=== PATIENT | male | born 1970 | race Caucasian/White ===

== ENCOUNTER 2019-05-07 15:36 | Inpatient (IN) ==
[2019-05-07] MEDS ORDERED: VENTOLIN HFA INH PRN (18:53)
[2019-05-07] MEDS ORDERED: ATARAX PO PRN (18:53)
[2019-05-07] MEDS ORDERED: SODIUM CHLORIDE 0.9% INJ SCH (19:00)
[2019-05-07] MEDS ORDERED: NEXIUM IV SCH (19:00)
[2019-05-07 19:20] LABS: ALLEN TEST YES; BE 12.6 mmoll (-3.0-3.0); BLOOD TYPE ARTERIAL; HCO3-(ACT) 34.2 mmoll (20.0-26.0); METHB 0.9 % (0.0-1.5); O2(CT) 19.6 mL/dL (15.0-23.0); SAMPLE BLOOD; THB 17.3 g/dL (11.5-17.4); pH(98.6) 7.31 (7.35-7.45)
[2019-05-07 19:23] LABS: MODALITY ROOM AIR; O2HB 80.8 % (95.0-99.0); PCO2(98.6) 88 mmHg (35-45); PO2(98.6) 43 mmHg (60-100)
[2019-05-07] MEDS: LOVENOX SUBQ SCH (20:05)
[2019-05-07] MEDS: NEURONTIN PO SCH (20:05)
[2019-05-07] MEDS: PROTONIX IV SCH (20:14)
[2019-05-07] MEDS: SODIUM CHLORIDE 0.9% INJ SCH (20:14)
[2019-05-07] MEDS: HUMULIN R SUBQ SCH (21:50)
[2019-05-07] MEDS ORDERED: PREVNAR 13 IM ONE (21:51)
[2019-05-08] MEDS: ULTRAM PO PRN ×2 (04:35→16:38)
[2019-05-08] MEDS: NEURONTIN PO SCH ×3 (05:14→21:15)
--- NOTE | 2019-05-08 06:29 | HISTORY AND PHYSICAL ---
CHIEF COMPLAINT: Altered mental status, hypoxic, and cyanotic. HISTORY OF PRESENT ILLNESS: He is a 48-year-old with Pickwickian syndrome, sleep hypopnea on oxygen, elevation of right hemidiaphragm with obesity, hypoventilation syndrome came to my office with fatigue and weakness. He had an annual exam done 2 weeks ago. He also has a low testosterone. He is not taking any diazepam or pain medications. He was on oxygen. He was obtunded in the chair, not easily arousable, pulse oximetry 58 percent, and he is very cyanotic. The patient would wake up with multiple verbal stimulus, and then asked him to take deep breaths and increased the oxygen. X-ray showed elevation of right hemidiaphragm. He is high risk for having CO2 narcosis. He also needs workup on chronic hypogonadism. He is not taking testosterone. He was seen by Dr. Sánchez.. He might be beneficial for using the trilogy on BiPAP machine. He was admitted directly with the help of the family for evaluation of acute respiratory failure due to hypoxic failure with CO2 narcosis. He denies of any chest pain, dyspnea on exertion, or swelling of feet. PAST MEDICAL HISTORY: 1. Anxiety. 2. Arnold-Chiari syndrome without spina bifida. 3. Chronic neck pain. 4. Metabolic syndrome. 5. Sleep apnea. 6. Hypertension. 7. Elevated right hemidiaphragm. 8. Hypogonadism. 9. Type 2 diabetes, A1c 7.1. 10. Hyperlipidemia off Lipitor. PAST SURGICAL HISTORY: Cervical vertebral fusion. MEDICATIONS: 1. Norvasc 10 mg daily. 2. Metformin 500 daily. 3. Gabapentin 600 3 times daily. 4. Stop taking Lipitor. 5. Hydroxyzine 50 t.i.d. 6. Albuterol as needed. 7. Valium 5 mg as needed. ALLERGIES: Ventralex. SOCIAL HISTORY: He is single. Working for IT support. Lives in [place]. Poor exercise. No smoking. No alcohol. No drug abuse. FAMILY HISTORY: Father of lung cancer at 63. Mom is 73 with osteoporosis. HEALTH MAINTENANCE: Influenza vaccine declined. Last physical exam 04/26/2019. REVIEW OF SYSTEMS: HEENT: No headache. No vision problem. Chronic neck pain. No sore throat. Neck: No goiter. No lymphadenopathy. No bruit. Cardiopulmonary: No chest pain, shortness of breath on exertion, swelling of legs and poor air entry. GI: No nausea, vomiting, abdominal pain. : No history of hesitancy, frequency, dysuria, and swelling of legs. Neurologic: No focal symptoms or weakness. PHYSICAL EXAMINATION: VITAL SIGNS: Temperature 98 degrees, pulse 91, blood pressure 144/82, and 92% now on nasal cannula. Six feet tall, 313 pounds. HEENT: Atraumatic, normocephalic. Pupils equal, and reactive to light. TMs are normal. Nose and throat within normal limits. NECK: Supple. No lymphadenopathy. No goiter. CHEST: Poor air entry. HEART: Sounds are very regular. Belly is soft, obese, nontender. RECTAL: Normal prostate. Heme-negative stool. EXTREMITIES: There is 1+ pedal edema. NEUROLOGIC: No obvious neurological deficits. INVESTIGATIONS: A pH is 7.31, pCO2 88, PO2 43. Carboxyhemoglobin 80 on room air. Glucose 180. Cardiac enzymes proBNP was normal. Chest x-ray with elevated right hemidiaphragm. ASSESSMENT AND PLAN: 1. A 48-year-old white gentleman admitted to the hospital with acute respiratory failure due to hypoxic failure and hypercarbia due to obesity, hypoventilation syndrome, sleep apnea, and abnormal chest x-ray with right hemidiaphragm. Plan is to quit smoking, oxygen 2 L. Trilogy or BiPAP machine will be helpful, and overnight pulse oximetry. 2. DVT/GI prophylaxis with Lovenox and Nexium respectively. 3. Initiate vaccination protocol. He declined the flu vaccine. Consider pneumococcal vaccine 13 and 23 after 1 year. 4. Type 2 diabetes. A1c 7.7 on metformin. 5. Hyperlipidemia, off Lipitor. LDL is 100. Consider low dose of Lipitor. 6. Chronic anxiety. Discontinue Valium due to worsening of asphyxia and hydroxyzine as needed. 7. We will follow up on the reconcile home medications. 8. Hypogonadism, low testosterone level. We will check the free testosterone, prolactin, FSH and transferrin saturation. Will follow up. cc: MD ALLI Arce
[2019-05-08] MEDS: HUMULIN R SUBQ SCH ×4 (06:58→21:00)
[2019-05-08] MEDS: NORVASC PO SCH (08:51)
[2019-05-08] MEDS: GLUCOPHAGE XR PO SCH (08:51)
[2019-05-08] MEDS: LIPITOR PO SCH (08:51)
--- NOTE | 2019-05-08 10:12 | Diag Imaging Result Doc PS360 ---
EXAM: XRAY HIP UNILATERAL LT 05/08/2019 HISTORY: pain TECHNIQUE: Left hip two views COMMENT: There is no evidence of fracture or dislocation. The joint spaces well-maintained. IMPRESSION: No evidence of acute bony disease. Electronically signed by Terry Turpin 05/08/2019 10:10 AM
[2019-05-08] MEDS: LOVENOX SUBQ SCH (19:46)
--- NOTE | 2019-05-08 20:14 | PROGRESS NOTE ---
DATE: 05/08/2019 SUBJECTIVE: The patient is waiting for his overnight pulse oximetry. He is on oxygen. His breathing is very labored. He is very obese. Unable to do PFTs. He also had an abnormal chest x- ray with elevated right hemidiaphragm. He has obesity hypoventilation syndrome. He has retaining hypercarbia at 88. His O2 was 43. He does not have any symptoms or signs of infection. He has complains of left hip pain. He has some stasis changes noted in both legs and is not able to ambulate. He also complains of low T. OBJECTIVE: Vital Signs: Temperature is 97, pulse is 98, blood pressure is 141/72, 93% on 4 L nasal cannula. HEENT: Plethoric face. Neck: Supple. Lungs: Poor air entry, distant heart sounds. Abdomen: Belly is soft, nontender. Extremities: Range of motion is normal in the left hip. Chronic stasis dermatitis noted. ASSESSMENT AND PLAN: 1. The patient is a 48-year-old white male who came in with [id number] respiratory failure with hypercarbia and hypoxemia due to a combination of obesity hypoventilation, possible sleep apnea, possible restrictive lung disease and also elevation of right hemidiaphragm. This is multifactorial. On top of this, he is also taking valium for chronic anxiety medicine. He will be very high risk for having CO2 narcosis and asphyxia. He was not able to tolerate a BiPAP machine. He needs noninvasive ventilatory measures to prevent acute respiratory failure. 2. Follow up on overnight pulse oximetry. 3. Hypogonadism, follow up on free testosterone levels and workup which includes FSH, transferrin saturation, prolactin levels. 4. Left hip pain. Follow up on x-ray of the left hip. 5. Chronic venous stasis dermatitis, stable. 6. Type 2 diabetes, stable. His A1c is 7.7 on metformin. Discussed with at bedside, and will arrange a It Systems Engineer consult for noninvasive ventilatory support for acute recurrent chronic respiratory failure. 7. Discussed with family at bedside. cc: Miguel Tavarez MD MTDD
[2019-05-08] MEDS: PROTONIX IV SCH (21:16)
[2019-05-08] MEDS: SODIUM CHLORIDE 0.9% INJ SCH (21:16)
[2019-05-09] MEDS: ULTRAM PO PRN ×3 (05:01→21:45)
[2019-05-09] MEDS: NEURONTIN PO SCH ×4 (05:01→23:06)
[2019-05-09] MEDS: HUMULIN R SUBQ SCH ×4 (07:03→23:05)
[2019-05-09] MEDS: NORVASC PO SCH (09:12)
[2019-05-09] MEDS: GLUCOPHAGE XR PO SCH (09:12)
[2019-05-09] MEDS: LIPITOR PO SCH (09:12)
--- NOTE | 2019-05-09 10:51 | PROGRESS NOTE ---
DATE: 05/09/2019 SUBJECTIVE: Patient denies having any acute complaints this morning. OBJECTIVE: Vital Signs: Temperature 99.1 degrees, pulse 107 per minute, respiratory rate 20 per minute, blood pressure 147/67, pulse oximetry 90% on 4 L of oxygen via nasal cannula. General: The patient is awake and alert. He does not appear to be in any acute distress. He is morbidly obese. Cardiovascular System: First and second heart sounds are audible without any murmurs or gallops. Respiratory System: Bilateral lung air entry is moderately decreased with no rales or rhonchi present on auscultation. Gastrointestinal System: The patient is morbidly obese. Abdomen is soft and nontender on palpation. Normal bowel sounds are present. DIAGNOSTIC DATA: No new labs have been done this morning. IMPRESSION: 1. Acute on chronic respiratory failure secondary to pickwickian syndrome and chronic obstructive pulmonary disease. He has been chronically retaining CO2 and has been diagnosed as having obstructive sleep apnea, for which he is currently being evaluated by insurance so that he can get approved for CPAP at home. 2. Type 2 diabetes mellitus and dyslipidemia, both of which have been under moderate control. PLAN: The patient will continue to be on supplemental oxygen, and we will continue with current medications including regular Humulin insulin subcutaneously as per sliding scale, metformin, atorvastatin, amlodipine and pantoprazole. He will continue with enoxaparin for VTE prophylaxis. I am going to put him on albuterol and ipratropium bromide nebulization treatments, and also get a chest x-ray, along with routine lab work done. On a chronic basis at home, he will need treatment for his obstructive sleep apnea, so that he does not have to have chronic CO2 retention, ending up having frequent hospital admissions. cc: MD Miguel Crawley MD
--- NOTE | 2019-05-09 11:40 | Diag Imaging Result Doc PS360 ---
EXAM: CHEST-PORTABLE HISTORY: Dyspnea TECHNIQUE: Single view COMPARISON: 04/27/2017 FINDINGS: Poor inspiratory effort. Heart is mildly prominent. There is basilar atelectasis. Small right pleural effusion versus pleural thickening. There has been surgery to the lower neck. IMPRESSION: Poor inspiratory effort with basilar atelectasis versus small infiltrates Electronically signed by Robert Trejo 05/09/2019 11:37 AM
[2019-05-09] MEDS: DUONEB (A & A) INH SCH ×2 (16:07→21:07)
[2019-05-09] MEDS: PROTONIX IV SCH (19:53)
[2019-05-09] MEDS: LOVENOX SUBQ SCH ×2 (19:53→23:06)
[2019-05-09] MEDS: SODIUM CHLORIDE 0.9% INJ SCH (23:06)
[2019-05-10] MEDS: DUONEB (A & A) INH SCH ×4 (03:32→20:13)
[2019-05-10] MEDS: HUMULIN R SUBQ SCH ×4 (06:03→20:33)
[2019-05-10] MEDS: NEURONTIN PO SCH ×3 (06:03→20:33)
[2019-05-10] MEDS: ULTRAM PO PRN ×2 (06:05→15:54)
[2019-05-10 07:53] LABS: BASO# 0.02 X1000 (0.0-0.2); BASO% 0.2 % (0.0-0.8); EOS# 0.27 X1000 (0.0-0.7); EOS% 3.2 % (0.0-10.0); HEMATOCRIT 53.9 % (42.0-52.0); HEMOGLOBIN 15.5 g/dL (14.0-18.0); IMM GRAN# 0.02 X1000 (0.0-0.04); IMM GRAN% 0.2 % (0.0-0.5); LYMPH# 1.49 X1000 (1.2-3.4); LYMPH% 17.9 % (20.5-51.1); MCH 29.4 PG (27-31); MCHC 28.8 g/dL (33-37); MCV 102.1 FL (81-99); MONO# 0.69 X1000 (0.11-0.59); MONO% 8.3 % (1.7-9.3); MPV 10.4 FL (7.4-10.4); NEUT# 5.83 X1000 (1.4-6.5); NEUT% 70.2 % (42.2-75.2); PLT 178 X1000 (130-400); RBC 5.28 XMIL (4.7-6.1); RDW 13.9 % (11.5-14.5); WBC 8.32 X1000 (4.8-10.8)
[2019-05-10 08:27] LABS: ESTIMATED GFR > 60
[2019-05-10 08:39] LABS: AGAP 8; ALB/GLOB RATIO 1.6; ALBUMIN 4.2 g/dL (3.5-5.0); ALKALINE PHOSPHATASE 53 U/L (32-122); BUN 9 mg/dL (8-22); CALCIUM 9.2 mg/dL (8.8-10.2); CHLORIDE 94 mmol/L (98-107); COSMO 288; CREATININE 0.5 mg/dL (0.7-1.2); GLUCOSE 145 mg/dL (70-104); GOT 26 U/L (10-34); GPT 25 U/L (10-44); POTASSIUM 4.6 mmol/L (3.5-5.1); SODIUM 144 mmol/L (136-145); TCO2 42 mmol/L (25-35); TOTAL BILIRUBIN 0.61 mg/dL (0.20-1.00); TOTAL PROTEIN 6.9 g/dL (6.3-8.3)
[2019-05-10] MEDS: NORVASC PO SCH (09:06)
[2019-05-10] MEDS: GLUCOPHAGE XR PO SCH (09:06)
[2019-05-10] MEDS: LIPITOR PO SCH (09:06)
--- NOTE | 2019-05-10 20:21 | PROGRESS NOTE ---
DATE: 05/10/2019 SUBJECTIVE: The patient is a little better, complains of left hip pain and back pain. Waiting for Trilogy machine. PHYSICAL EXAMINATION: Temperature is 98.9 degrees, pulse 91, blood pressure is stable.HEENT: Within normal limits. Neck: Supple. Chest: Poor air entry. Heart: Sounds are regular. Abdomen: Belly is soft, nontender. No obvious deficits. ASSESSMENT AND PLAN: Acute respiratory failure. Waiting to be approved Trilogy. Unfortunately, has highly deductible. Explained the other options. We can try BiPAP machine with sleep study as an outpatient and we will workup on this back pain and continue symptomatic treatment. As far as hypogonadism, levels of free testosterone is pending. Workup so far is negative. Continue present treatment. We will discharge in the morning. We will work for sleep studies officially. Overnight pulse oximetry studies is pending. LEVEL OF DOCUMENTATION: 25 minutes. cc: Miguel Tavarez MD
[2019-05-10] MEDS: LOVENOX SUBQ SCH (20:33)
[2019-05-10] MEDS: PROTONIX IV SCH (20:33)
[2019-05-11] MEDS: ULTRAM PO PRN (03:00)
[2019-05-11] MEDS: DUONEB (A & A) INH SCH ×2 (04:05→08:02)
[2019-05-11] MEDS: NEURONTIN PO SCH ×2 (06:20→12:31)
[2019-05-11] MEDS: HUMULIN R SUBQ SCH ×2 (06:52→11:40)
[2019-05-11] MEDS: GLUCOPHAGE XR PO SCH (08:55)
[2019-05-11] MEDS: NORVASC PO SCH (08:55)
[2019-05-11] MEDS: LIPITOR PO SCH (08:55)
[2019-05-11 12:27] VITALS: BP 141/85
[2019-05-11] MEDS ORDERED: PROTONIX PO SCH (20:00)
--- NOTE | 2019-05-12 21:05 | DISCHARGE SUMMARY ---
ADMISSION DATE: 05/07/2019 DISCHARGE DATE: 05/11/2019 DISCHARGING DIAGNOSES: 1. Acute respiratory failure with chronic respiratory failure, multifactorial. 2. Obesity hypoventilation syndrome. 3. Restrictive lung disease. 4. Elevation of right hemidiaphragm. SECONDARY DIAGNOSES: 1. Arnold-Chiari information without spina bifida. 2. Chronic anxiety. 3. Chronic neck pain. 4. Metabolic syndrome. 5. Sleep apnea. 6. Hypertension. 7. History of hypogonadism. Followup free testosterone levels were normal. 8. Type 2 diabetes. 9. Hyperlipidemia. BRIEF HISTORY: Please see the H and P that was done on 05/07/2019. In brief, he is a 48-year-old white male with the above problems. He was brought in to my office with altered mental status with cyanosis on 2 L of nasal cannula, not responding properly as per the nurses, and his pulse ox was 58%. He was admitted directly for acute respiratory failure with chronic respiratory insufficiency. HOSPITAL COURSE: 1. His ABG showed profound hypercarbia and hypoxemia. He needs to be encouraged to lose weight and continue incentive spirometry. He was seen by tool dispatcher, . He meets qualification for a Trilogy noninvasive ventilator machine. Unfortunately, the patient could not afford the deductibles. The other option is using a BiPAP machine. I will arrange outpatient sleep studies. 2. He has chronic stasis changes in both legs which are stable. 3. Complains of left hip pain. X-rays were negative. 4. History of hypogonadism. Followup of free testosterone levels were normal. Further workup, prolactin, FSH, and transferrin saturation were normal. At this time, I am reluctant to give any testosterone shots. He needs to monitor his weight, diabetes hypertension. 5. I spoke to the caregiver at bedside. He does not need any chronic pain medicines or anxiety medicine that will cause more CO2 narcosis and asphyxia. I would categorically discourage using any chronic pain medicines along with benzodiazepines. LABORATORY DATA: As follows CBC: White cell count 8.3, hematocrit 53, platelets 178. ABG on room air: pH is 7.31, pCO2 88, PO2 43. Oxyhemoglobin 80% on room air. Sodium 144, potassium 4.6, carbon dioxide 42, BUN 9, creatinine 0.5, glucose 145. LFTs were normal. Cardiac enzymes are normal. ProBNP was normal. I repeated the free testosterone level, which was normal at 6.8. DISCHARGE INSTRUCTIONS: 1. Pneumococcal vaccine 13 was given 05/11/2019. 2. Oxygen 2 L. 3. Encouraged weight loss. 4. Neurontin 600 t.i.d. Discontinue Valium. Amlodipine 10 daily, hydroxyzine as needed for nausea, metformin 500 p.o. daily, albuterol ProAir as needed, Excedrin 15 tablets as needed. 5. Outpatient sleep studies with Dr. Cordero. 6. BiPAP machine. FOLLOWUP: In my office in 2 weeks. cc: Miguel Tavarez MD MTDD
== END 2019-05-11 12:54 | disposition home or self-care (01) | DRG 189 ==
LOC: DIRADM 15:36 → 4N 16:27 → 3N 05-08 22:31
PROVIDERS: ADMIT Internal Medicine; ATTEND Internal Medicine

== ENCOUNTER 2019-08-21 22:07 | Inpatient (IN) ==
[2019-08-21 23:37] LABS: BASO# 0.05 X1000 (0.0-0.2); BASO% 0.5 % (0.0-0.8); HEMATOCRIT 52.9 % (42.0-52.0); HEMOGLOBIN 15.5 g/dL (14.0-18.0); IMM GRAN# 0.03 X1000 (0.0-0.04); IMM GRAN% 0.3 % (0.0-0.5); LYMPH# 1.28 X1000 (1.2-3.4); LYMPH% 12.9 % (20.5-51.1); MCH 29.8 PG (27-31); MCHC 29.3 g/dL (33-37); MCV 101.7 FL (81-99); MONO# 0.85 X1000 (0.11-0.59); MONO% 8.5 % (1.7-9.3); MPV 10.8 FL (7.4-10.4); NEUT# 7.64 X1000 (1.4-6.5); NEUT% 76.8 % (42.2-75.2); PLT 180 X1000 (130-400); RDW 12.6 % (11.5-14.5); WBC 9.95 X1000 (4.8-10.8)
[2019-08-21 23:59] LABS: ESTIMATED GFR > 60
[2019-08-22] LABS: AGAP 7; ALB/GLOB RATIO 1.1; ALBUMIN 4.2 g/dL (3.5-5.0); ALKALINE PHOSPHATASE 65 U/L (32-122); BUN 13 mg/dL (8-22); CALCIUM 9.7 mg/dL (8.8-10.2); CHLORIDE 93 mmol/L (98-107); COSMO 287; CREATININE 0.6 mg/dL (0.7-1.2); GLUCOSE 141 mg/dL (70-104); GOT 16 U/L (10-34); GPT 19 U/L (10-44); POTASSIUM 4.5 mmol/L (3.5-5.1); SODIUM 143 mmol/L (136-145); TCO2 43 mmol/L (25-35); TOTAL BILIRUBIN 0.42 mg/dL (0.20-1.00); TOTAL PROTEIN 7.9 g/dL (6.3-8.3)
--- NOTE | 2019-08-22 00:21 | PROVIDER DOCUMENTATION ---
This chart was entered by Halle Fritz Scribe, acting as scribe for Chung Souza MD. HPI-Musculoskeletal Pain/Inj - GENERAL Chief Complaint: Fall Stated Complaint: fall Time Seen by Provider: 08/21/19 22:24 Source: patient, EMS - HX OF PRESENT ILLNESS-MUSKULOSKELTAL Nature of Presenting Problem: 48 yowm presents to the ed via ems post falling while at home. pt sts he has chiari malformation which he sts it causes generalized weakness. pt reports he was going to the bathroom when he had lower back weakness that caused him to fall. pt c/o left upper back medial to scapula Quality of Pain: reports: aching Severity in ED: moderate Onset/Duration: just prior to arrival Timing: still present, intermittent Modifying Factors: improves with: immobilization. worse with: movement, palpa tion Any recent injury?: Yes (fall ) Locality of Occurance: Home Similar Symptoms Previously?: Yes (chiari malformation that causes weakness per pt ) Recently seen or treated by another doctor?: No - FALL INJURY Location of Pain/Injury: reports: back Pain Radiation: reports: no radiation Reason for Fall: reports: other (became weak) Symptoms prior to fall:: reports: other (weakness in his back) Loss of Consciousness: no loss of consciousness Injury Associated Symptoms: reports: back/neck pain, weakness (generalized). denies: chest pain, nausea, snap/crack/pop sensation, pain with inspiration, vomiting Review of Systems - Adult - REVIEW OF SYSTEMS - ADULT Constitutional: denies: chills, fever Eyes: reports: no symptoms reported Ears, Nose, Mouth & Throat: reports: no symptoms reported Cardiovascular: denies: chest pain, palpitations Respiratory: denies: cough, shortness of breath, wheezing Gastrointestinal: denies: diarrhea, nausea, vomiting Genitourinary: reports: no symptoms reported Musculoskeletal: reports: see HPI, back pain, muscle weakness. denies: neck pain Integumentary: reports: no symptoms reported Neurological: denies: dizziness/vertigo, headache/migraines Psychiatric: reports: no symptoms reported Endocrine: reports: no symptoms reported Hematologic/Lymphatic: reports: no symptoms reported Allergic/Immunologic: reports: no symptoms reported All Other Systems: Reviewed and Negative Past History - Adult - PAST MEDICAL HISTORY-ADULT Review of Records: reports: Old Records Reviewed, Nursing Assessment Review, Medications Reviewed, Social history reviewed & non-contributory. Major Childhood Illnesses: reports: denies history Cardiovascular: reports: denies history Respiratory: reports: denies history Gastrointestinal: reports: denies history Genitourinary: reports: denies history Musculoskeletal: reports: chronic pain Neurological: reports: other (chiari malformation) Psychiatric: reports: denies history Endocrine/Immune: reports: denies history Other Conditions: reports: denies history Additional History: generalized weakness - PRIOR SURGERIES/PROCEDURES Surgical/Procedure History: reports: back/neck - IMMUNIZATION STATUS Childhood Immunizations: See Nurse Assessment Flu Vaccine: See Nurse Assessment - FAMILY HISTORY Family History: reviewed, not pertinent - SOCIAL HISTORY Smoking: quit greater than 1 year Substance Use: denies Living Situation: family Physical Exam-Injury Related - Physical Exam-Injury Related Initial Vital Signs Reviewed: Yes General Appearance: appears well, alert, no apparent distress, obese (44.1 BMI kg) Eyes: PERRL/EOMI, pink conjunctivae Head, Ears, Nose, Mouth & Throat: negative: other (deferred OP exam due to Covid, mask is in place) Neck: non-tender, full range of motion, normal inspection Respiratory: chest non-tender, lungs clear, normal breath sounds, no pleuratic chest pain, no respiratory distress, no accessory muscle use Cardiovascular: normal peripheral pulses, tachycardia (105) Chest/Breast: deferred Abdominal Exam: normal bowel sounds, non tender, soft Male Genitalia: deferred Rectal Exam: deferred Hemoccult Exam: deferred Back Exam: negative: other (pt back exam deferred due to pt not being able to assist to raise himself in the bed. pt c/o left medial to scapula tenderness) Extremity: normal inspection, normal capillary refill Integumentary: normal color, warm/dry Neurologic: grossly normal Psych/Mental Status: normal mood/affect, normal thought content, normal thought process, oriented x 3 - Glascow Coma Score Best Eye Response (Oral): (4) open spontaneously Best Verbal Response (Oral): (5) oriented Best Motor Response (Oral): (6) obeys commands Nasima Total: 15 Progress - PLAN OF CARE/RESULTS Progress/Plan/Lab Results: Vital Signs - 8 hr 08/21/19 22:21 Temperature 99 F Pulse Rate 105 H Respiratory Rate 17 Blood Pressure 144/86 O2 Sat by Pulse Oximetry 96 Laboratory Results - last 24 hr 08/21/19 08/21/19 22:30 22:30 WBC 9.95 RBC 5.20 Hgb 15.5 Hct 52.9 H MCV 101.7 H MCH 29.8 MCHC 29.3 L RDW Std Deviation 12.6 Plt Count 180 MPV 10.8 H Immature Gran % (Auto) 0.3 Neut % (Auto) 76.8 H Lymph % (Auto) 12.9 L [place] % (Auto) 8.5 Eos % (Auto) 1.0 Baso % (Auto) 0.5 Immature Gran # (Auto) 0.03 Neut # (Auto) 7.64 H Lymph # (Auto) 1.28 [place] # (Auto) 0.85 H Eos # (Auto) 0.10 Baso # (Auto) 0.05 Sodium 143 Potassium 4.5 Chloride 93 L Carbon Dioxide 43 H Anion Gap 7 BUN 13 Creatinine 0.6 L Estimated GFR/1.73 m2 > 60 BUN/Creatinine Ratio 22 Glucose 141 H Calculated Osmolality 287 Calcium 9.7 Total Bilirubin 0.42 AST 16 ALT 19 Alkaline Phosphatase 65 Total Protein 7.9 Albumin 4.2 Globulin 3.7 Albumin/Globulin Ratio 1.1 Orders Category Date Time Status CT HEAD/C-SPINE W/O CONTRAST [CT] Stat Exams 08/21/19 22:44 Taken SHOULDER-LEFT [RAD] Stat Exams 08/21/19 22:44 Taken SHOULDER-RIGHT [RAD] Stat Exams 08/21/19 22:44 Taken CBC WITH DIFF [HEME] Stat Lab 08/21/19 22:30 Completed COMPREHENSIVE METABOLIC PANEL [CHEM] Stat Lab 08/21/19 22:30 Completed Result Diagrams: 08/21/19 22:30 08/21/19 22:30 - XRAY 1 XRAY: Right XRAY Study: Shoulder Impression: Normal 2 XRAY: Left XRAY Study: Shoulder Impression: Normal - CT/MRI 1 CT Study: Cervical Spine, Head Impression: Normal Departure - Departure Date of Disposition Decision: 08/22/19 Time of Disposition Decision: 00:18 DIAGNOSIS: Fall Qualifiers: Encounter type: initial encounter Qualified Code(s): W19.XXXA - Unspecified fall, initial encounter Contusion of shoulder, left Qualifiers: Encounter type: initial encounter Qualified Code(s): S40.012A - Contusion of left shoulder, initial encounter Contusion of shoulder, right Qualifiers: Encounter type: initial encounter Qualified Code(s): S40.011A - Contusion of right shoulder, initial encounter Disposition: HOME 01 Certified Medical Emergency: Emergent Condition: Good Additional Instructions: ED Follow Up Instructions: You have been treated by a care provider in the Emergency Department. These instructions are being provided to you so you can have an understanding of how to care for yourself upon discharge. Upon discharge from the Emergency Department, you are responsible for making arrangements for follow-up care by a physician of your choice. Take all prescribed medications as directed. Return to the Emergency Department immediately for any new or worsening symptoms. You may call the Physician Referral phone number at [phone] to obtain a list of Physicians who are taking new patients. Referrals and Follow-Ups: None,PCP [Primary Care Provider] - - Critical Care Note This patient required my direct & personal management of CC.: No Attestation - Physician/ TAINA Attestation Patient care was provided by Advanced Practice Provider:: No The physician spent face to face time with patient:: Yes Advanced Practice Provider documentation review:: Supervising physician onsite and consulted in the evaluation and care of this patient. The physician did have a face to face encounter with the patient. This chart was documented by the indicated scribe, (Halle Fritz Scribe) and accurately reflects the services I performed and decisions made by me, Chung Souza MD, as attested by the provider's signature.
[2019-08-22] MEDS ORDERED: NS 1,000 ML IV SCH (01:15)
[2019-08-22 03:33] LABS: URINE SOURCE CATH
[2019-08-22 03:46] LABS: BILIRUBIN URINE NEGATIVE (NEGATIVE); BLOOD URINE NEGATIVE (NEGATIVE); COLOR YELLOW; GLUCOSE URINE NEGATIVE (NEGATIVE); KETONE URINE TRACE mg/dL (NEGATIVE); LEUKOCYTES URINE NEGATIVE (NEGATIVE); NITRITE URINE NEGATIVE (NEGATIVE); PROTEIN URINE TRACE mg/dL (NEGATIVE); TURBIDITY URINE CLEAR (CLEAR); UROBILINOGEN URINE NORMAL (NORMAL)
[2019-08-22 03:47] LABS: UR EPITHELIAL CELLS <10 /HPF (<10); URINE BACTERIA NEGATIVE /HPF; URINE RBC <10 /HPF (<10); URINE WBC <10 /HPF (<10)
[2019-08-22] MEDS: NEURONTIN PO SCH ×2 (05:53→13:04)
[2019-08-22] MEDS: HUMALOG SUBQ SCH ×4 (06:14→22:47)
--- NOTE | 2019-08-22 06:27 | Diag Imaging Result Doc PS360 ---
SHOULDER-RIGHT - 08/21/2019 INDICATION: fall TECHNIQUE: Three views COMPARISON: None FINDINGS: Bones are intact and normally aligned. Joint spaces and soft tissues are clear. IMPRESSION: Negative exam. Electronically signed by Rodrigo Burton 08/22/2019 6:25 AM
--- NOTE | 2019-08-22 06:27 | Diag Imaging Result Doc PS360 ---
SHOULDER-LEFT - 08/21/2019 INDICATION: fall TECHNIQUE: Three views COMPARISON: None FINDINGS: Bones are intact and normally aligned. Joint spaces and soft tissues are clear. IMPRESSION: Negative exam. Electronically signed by Rodrigo Burton 08/22/2019 6:24 AM
--- NOTE | 2019-08-22 07:06 | Diag Imaging Result Doc PS360 ---
EXAM: CT HEAD/C-SPINE W/O CONTRAST 08/21/2019 HISTORY: fell TECHNIQUE: This exam was performed using automated exposure control, adjustment of mA or kV according to patient size, and/or use of iterative reconstruction technique. COMMENT: There has been previous occipital craniotomy posteriorly which is likely due to a Chiari malformation. There is no evidence of mass effect, bleed, or abnormal extra-axial fluid collection. There are no previous studies available for comparison. Cervical spine: The posterior arch of C1 has been resected. There has been anterior fusion at the C4-5 and C5-6 levels. The facets are aligned. There is no evidence of acute fracture or subluxation. Some degenerative changes seen in the anterior atlantoaxial joint. IMPRESSION: Postsurgical changes in the occipital bone and cervical spine as described. No evidence of acute intracranial disease or cervical spine abnormality. Electronically signed by Terry Turpin 08/22/2019 7:03 AM
--- NOTE | 2019-08-22 07:16 | Diag Imaging Result Doc PS360 ---
CHEST-PORTABLE - 08/22/2019 INDICATION: hypoxia COMPARISON: 05/09/2019 FINDINGS: Stable critically low lung volumes. Stable bibasilar atelectasis. No new infiltrates. Stable cardiomegaly and mild pulmonary vascular congestion. IMPRESSION: No change from prior. Electronically signed by Rodrigo Burton 08/22/2019 7:14 AM
--- NOTE | 2019-08-22 07:41 | HISTORY AND PHYSICAL ---
HISTORY OF PRESENT ILLNESS: Mr. Gagan Barriga is a 48-year-old male who has a history of multiple medical problems including diabetes mellitus, hypertension, obesity, obstructive sleep apnea, hypertension, history of Arnold-Chiari malformation. The patient sustained a fall prior to coming to the hospital. The patient indicates that he fell backwards with both shoulders having an impact with the floor. He denies any impact of his head on the floor. The patient subsequently presented to the emergency department, who ordered a CT scan of the C-spine as well as his head, which were unremarkable. He also had x-rays of both shoulders, which were both unremarkable. The patient was going to be discharged home from the ER, however, he felt weak and had difficulty with ambulation, and as such he had to be admitted to the hospital for further management. PAST MEDICAL HISTORY: Anxiety disorder, Arnold-Chiari malformation without spina bifida, chronic back pain, metabolic syndrome, obstructive sleep apnea, hypertension, elevated right hemidiaphragm, hypogonadism, type 2 diabetes mellitus, and history of hyperlipidemia. PAST SURGICAL HISTORY: She has had cervical vertebral fusion. ALLERGIES: Ventralex. SOCIAL HISTORY: No history of cigarette smoking. No alcohol or drug use. FAMILY HISTORY: Positive for cancer. MEDICATIONS: 1. Amlodipine 10 mg p.o. daily. 2. Aspirin/acetaminophen/caffeine as directed. 3. Gabapentin 600 mg p.o. 3 times a day. 4. Metformin 500 mg p.o. once a day. 5. Hydroxyzine 50 mg p.o. 3 times a day. 6. Albuterol sulfate HFA as directed. REVIEW OF SYSTEMS: Constitutional: No fever. 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 Eyes: No blurred vision. ENT: Patient does have ringing in his ears. Cardiovascular: No chest pain. Respiratory: No cough. GI: No nausea, vomiting, or diarrhea. : No dysuria. Dermatology: No skin lesions. Hematology: No bleeding problems. Musculoskeletal: No joint pains. Psychiatric: The patient does have anxiety with depression. Allergy/Immunology: He has slight symptoms suggestive of allergic rhinitis. PHYSICAL EXAMINATION: VITAL SIGNS: Temperature 99 degrees, pulse 105, respiratory rate 17, blood pressure 144/86, oxygen saturation 96%. HEENT: Atraumatic and normocephalic. Anicteric. No oral lesions noted. NECK: No lymphadenopathy or thyromegaly. CARDIOVASCULAR: S1, S2. RESPIRATORY SYSTEM: Evidence of good air entry bilaterally. ABDOMEN: Soft, obese and nontender. No masses felt. EXTREMITIES: No evidence of edema. CENTRAL NERVOUS SYSTEM: No obvious focal deficit noted. LABORATORY STUDIES: WBCs 9.95, hematocrit 52.9, platelet count 180,000, sodium 143, potassium 4.5, chloride 93, bicarb 43, BUN 7, creatinine 0.6, and glucose 141. IMAGING STUDIES: X-ray of the right shoulder, negative exam. X-ray of the left shoulder, negative exam. CT scan of the head as well as C-spine shows post surgical change in occipital bone as well as cervical spine. No evidence of any acute intracranial disease or cervical spine abnormalities. ASSESSMENT AND PLAN: 1. Generalized weakness with history of recent fall. The patient will require physical therapy. We will also check thyroid function tests, vitamin B12 level, folate level, 25-hydroxy vitamin D level and also COLTON levels. 2. Diabetes mellitus. Check hemoglobin A1c. Place patient on sliding scale insulin. Monitor blood sugar levels. 3. Hyperlipidemia. Check lipid panel. 4. Obesity. The patient will require dietary restrictions as well as exercise program post discharge from the hospital. 5. Obstructive sleep apnea. The patient may use a CPAP machine, if he has one from home. 6. Hypertension. Optimize blood pressure control. 7. Anxiety disorder. Maintain patient anxiolytic as needed. 8. Arnold-Chiari malformation without spina bifida. Aware. 9. Polycythemia. May be related to sleep apnea. Follow-up on patient's hematocrit. 10. Deep vein thrombosis prophylaxis with sequential compression devices. 11. Gastrointestinal prophylaxis with proton pump inhibitor. cc: Madan Kramer MD
[2019-08-22] MEDS: NORVASC PO SCH (08:38)
[2019-08-22] MEDS: VITAMIN D PO SCH (13:04)
[2019-08-22] MEDS: LOVENOX SUBQ SCH (13:05)
[2019-08-22] MEDS ORDERED: CALMOSEPTINE OINTMENT TOP PRN (18:44)
--- NOTE | 2019-08-22 20:41 | PROGRESS NOTE ---
DATE: 08/22/2019 SUBJECTIVE: A 48-year-old morbidly obese white gentleman admitted to the hospital last night. Apparently, he is falling. He is extremely weak. Complains of left hip pain not able to ambulate. He is morbidly obese. He was discharged from the hospital on 05/11/2019. He is awake. REVIEW OF SYSTEMS: None reported other than the left hip pain. No back pain. External injuries noted. PAST MEDICAL HISTORY: 1. Obesity. 2. Hypoventilation syndrome. 3. Restrictive lung disease. 4. Elevation of right hemidiaphragm. 5. Acute respiratory failure with chronic respiratory insufficiency. 6. Arnold-Chiari malformation with spina bifida. 7. Chronic anxiety. 8. Chronic pain syndrome. 9. Chronic venous stasis dermatitis. 10. Metabolic syndrome. 11. Sleep apnea. 12. History of hypogonadism. 13. Type 2 diabetes. 14. Hyperlipidemia. PHYSICAL EXAMINATION: Vital Signs: Temperature is 98 degrees, pulse 87. Vitals are stable. General: Morbidly obese, bedridden. Neck: Supple. Lungs: Poor air entry. Decreased breath sounds on oxygen continuous pulse oximetry 98%. Abdomen: Belly is soft, obese. Wood was placed. Extremities: He has a stasis changes in both legs and pain in the left hip, slightly rotated on the left side. INVESTIGATIONS: CBC: White cell count 9.9, hematocrit 52, MCV 101, platelet count 180,000. Sodium 143, potassium 4.5, chloride 93, BUN 13, creatinine 0.6, glucose 140. LFTs were normal. B12 542. Vitamin D hydroxy slightly low. Urinalysis is clear. Chest x-ray; stable low lung volumes. Bibasilar atelectasis, elevation of right hemidiaphragm. Shoulder x-ray; negative. Bones are intact. CT head and cervical spine. Postsurgical changes in occipital bone and cervical bone from Arnold- Chiari malformation. No evidence of acute intracranial disease. ASSESSMENT AND PLAN: 1. A 48-year-old with obesity and hypoventilation syndrome, came in with a fall with left hip pain not able to ambulate. We will follow up x-ray of the left hip. 2. He was unable to get the trilogy ventilator support because of high deductible. Use the continuous pulse oximetry. 3. Hypertension. Norvasc 10 mg daily. 4. Vitamin D deficiency. Vitamin D 5000 daily. 5. DVT and GI prophylaxis as per order sheet with Lovenox and Prilosec. 6. Continue sliding scale with insulin coverage. Type 2 diabetes on metformin. 7. X-ray of left hip and lumbar spine. 8. Physical therapy consult. 9. Will get the ABGs in the morning and will follow up. LEVEL OF DOCUMENTATION: 35 minutes cc: Miguel Tavarez MD
--- NOTE | 2019-08-22 20:41 | Diag Imaging Result Doc PS360 ---
EXAM: LUMBAR SPINE 08/22/2019 HISTORY: fall TECHNIQUE: Lumbosacral spine with obliques six views COMMENT: There is curvature of the lumbar spine with convexity to the left. The pedicles are intact. There is anterior osteophyte formation at the T12-L1 and L1-2 levels. There is no evidence of acute fracture or subluxation. IMPRESSION: Degenerative disc disease and scoliosis. Electronically signed by Terry Turpin 08/22/2019 8:39 PM
--- NOTE | 2019-08-22 20:42 | Diag Imaging Result Doc PS360 ---
EXAM: XRAY HIP UNILATERAL LT 08/22/2019 HISTORY: fall TECHNIQUE: Left hip two views COMMENT: There is no evidence of fracture or dislocation. The appearance has not changed significantly since 05/08/2019. IMPRESSION: No evidence of acute bony abnormality. Electronically signed by Terry Turpin 08/22/2019 8:39 PM
[2019-08-23] MEDS: NEURONTIN PO SCH ×4 (00:25→22:41)
[2019-08-23] MEDS: PRILOSEC PO SCH ×2 (05:25→06:51)
[2019-08-23 05:37] LABS: ALLEN TEST YES; BE 16.4 mmoll (-3.0-3.0); BLOOD TYPE ARTERIAL; HCO3-(ACT) 37.5 mmoll (20.0-26.0); METHB 1.4 % (0.0-1.5); O2(CT) 19.8 mL/dL (15.0-23.0); O2HB 91.9 % (95.0-99.0); PO2(98.6) 66 mmHg (60-100); SAMPLE BLOOD; SAO2 95.6 % (95.0-100.0); THB 15.3 g/dL (11.5-17.4); pH(98.6) 7.36 (7.35-7.45)
[2019-08-23 05:44] LABS: MODALITY CANNULA; PCO2(98.6) 83 mmHg (35-45)
[2019-08-23] MEDS: HUMALOG SUBQ SCH ×4 (06:52→22:40)
[2019-08-23 08:30] LABS: HEMOGLOBIN A1C 6.4 % (4.8-6.0)
[2019-08-23 08:48] LABS: CHOLESTEROL 149 mg/dL (0-200); HDL 36 mg/dL (35-55); LDL 93 mg/dL; TRIGLYCERIDES 98 mg/dL (39-160); VLDL 20 mg/dL
[2019-08-23] MEDS: VITAMIN D PO SCH (08:51)
[2019-08-23] MEDS: GLUCOPHAGE XR PO SCH (08:51)
[2019-08-23] MEDS: LOVENOX SUBQ SCH (08:51)
[2019-08-23] MEDS: NORVASC PO SCH (08:51)
[2019-08-23] MEDS: EXCEDRIN MIGRAINE PO PRN (12:41)
--- NOTE | 2019-08-23 18:50 | PROGRESS NOTE ---
DATE: 08/23/2019 SUBJECTIVE: Patient is better and I did explain the x-rays of left hip. No evidence of fracture. An x-ray of lumbar spine showed degenerative changes. He is using CPAP machine in the nighttime. He is morbidly obese, hyperventilating. OBJECTIVE: Vital signs: Stable, 93%. Lungs: Bilateral air entry poor. Abdomen: Belly is soft, nontender. INVESTIGATIONS: ABG: PH is 7.36, pCO2 83, pO2 66 on 40%. A1c 6.4. Vitamin D is normal. TSH is on the low side. We will get the free T4 in the morning. ASSESSMENT: 1. Obesity hypoventilation syndrome. 2. Diabetes. 3. Scoliosis. 4. Osteoarthritis changes in the spine. PLAN: 1. Will discontinue the Wood in the morning. 2. Out of the bed with physical therapy and if he is ambulating and breathing well, hopefully we will discharge. 3. Continue with deep venous thrombosis and gastrointestinal prophylaxis as per order sheet. cc: Miguel Tavarez MD
[2019-08-24] MEDS: NEURONTIN PO SCH ×3 (05:58→22:06)
[2019-08-24] MEDS: EXCEDRIN MIGRAINE PO PRN (06:08)
[2019-08-24] MEDS: PRILOSEC PO SCH (06:08)
[2019-08-24] MEDS: HUMALOG SUBQ SCH ×4 (06:59→22:06)
[2019-08-24] MEDS: NORVASC PO SCH (10:42)
[2019-08-24] MEDS: LOVENOX SUBQ SCH (10:42)
[2019-08-24] MEDS: GLUCOPHAGE XR PO SCH (10:42)
[2019-08-24] MEDS: VITAMIN D PO SCH (10:42)
--- NOTE | 2019-08-24 19:45 | PROGRESS NOTE ---
DATE: 08/24/2019 SUBJECTIVE: The patient is a little better. He is getting out of the bed with physical therapy. He is still obese, poor inspiratory effort PHYSICAL EXAMINATION: Temperature is 98 degrees, vitals are stable. Morbidly obese. Poor air entry. Belly is soft, nontender. Stasis changes noted in both legs. INVESTIGATIONS: ABG: pH is 7.36, pCO2 83, PO2 66. A1c 6.4. Lipid profile is normal. Free T4 is normal. B12 levels were normal. ASSESSMENT: 1. Generalized weakness, deconditioning. 2. Pickwickian syndrome. 3. Metabolic syndrome. 4. Hypogonadism. 5. Chronic back pain. 6. Hypertension. PLAN OF CARE: Discontinue Wood. Continue Neurontin. X-rays were discussed with the patient, left hip, no fracture identified. Out of the bed with physical therapy. DVT and GI prophylaxis. Replace vitamin D. If he is stable, we will discharge over the weekend. Level of documentation 25 minutes. cc: Miguel Tavarez MD MTDD
[2019-08-25] MEDS: HUMALOG SUBQ SCH ×2 (06:12→11:59)
[2019-08-25] MEDS: NEURONTIN PO SCH ×3 (06:12→12:17)
[2019-08-25] MEDS: PRILOSEC PO SCH (06:17)
[2019-08-25] MEDS: LOVENOX SUBQ SCH (09:24)
[2019-08-25] MEDS: VITAMIN D PO SCH (09:25)
[2019-08-25] MEDS: NORVASC PO SCH (09:25)
[2019-08-25] MEDS: GLUCOPHAGE XR PO SCH (09:25)
[2019-08-25 15:39] VITALS: BP 137/72
--- NOTE | 2019-08-26 14:48 | DISCHARGE SUMMARY ---
ADMISSION DATE: 08/22/2019 DISCHARGE DATE: 08/25/2019 DISCHARGING DIAGNOSIS: Lower back pain due to spondylosis. SECONDARY DIAGNOSES: 1. Pickwickian syndrome with obesity hypoventilation. 2. Chronic respiratory failure due to restrictive lung disease. 3. Elevation of right hemidiaphragm. 4. Arnold-Chiari malformation without spina bifida. 5. Chronic anxiety. 6. Chronic back pain. 7. Metabolic syndrome. 8. Sleep apnea. 9. Hypertension. 10. Type 2 diabetes. 11. Hyperlipidemia. 12. History of hypogonadism. BRIEF HISTORY: Please see the H and P that was done by hospitalist. In brief, he is a 48-year- old, white gentleman, obese, with the above problems. Came to the hospital. Deconditioning, back pain, left hip pain. Not able to walk, with a fall. The patient had a workup in the ER. Basically, he had a Wood placed. Not able to walk. HOSPITAL COURSE: He had significant complaints of hip pain and back pain. X-rays were reviewed, without any acute bony fracture. Lumbar spine x-ray showed mild scoliosis towards left with spondylosis T12, L1, L2, levels. The patient was given inpatient physical therapy. Wood was discontinued. The rest of the hospital course was uneventful. DVT and GI prophylaxis was given. LABORATORY DATA: CBC: White cell count 9.9, hematocrit 52, platelets 180,000. Sodium 143, potassium 4.5, BUN 13, creatinine 0.6, glucose 141. A1c 6.4. LFTs were normal. B12 normal, vitamin D on the low side. Free T4 is normal. COLTON positive but DSDNA is 34. RADIOLOGY PROCEDURES: Left hip x-ray, no acute bony injury. Chest x-ray stable with low lung volumes, elevation of right hemidiaphragm. X-ray of the shoulders, on the left side, no acute bony injury. CT of head and cervical spine, postsurgical changes in the occipital bone and cervical spine. No evidence of acute intracranial disease or cervical spine abnormality. The posterior arch of C1 has been resected. Anterior fusion of C4-C5, C5-C6 levels. DISCHARGE INSTRUCTIONS: The patient was discharged home in a stable condition with these following instructions: 1. Neurontin 600 t.i.d., amlodipine 10 daily, hydroxyzine 50 as needed for sleep, metformin 500 p.o. daily, ProAir HFA as needed, Celebrex 200 daily for arthritis. 2. Encouraged to lose weight. 3. Outpatient sleep study for BiPAP machine versus Trilogy. 4. Follow up in my office next week. 5. He will return to work on 08/27/2019. cc: Miguel Tavarez MD
== END 2019-08-25 16:02 | disposition home or self-care (01) | DRG 552 ==
LOC: ED 22:07 → SUATTDRO 22:08 → 3N 22:08
PROVIDERS: ADMIT Internal Medicine; ATTEND Internal Medicine